=== PATIENT | male | born 2000 ===

== ENCOUNTER 2020-08-04 23:15 | Emergency (ER) | payer SELFPAY ==
[2020-08-05 01:11] VITALS: BP 162/85
--- NOTE | 2020-08-05 01:11 | Emergency Department Report ---
ED General Adult HPI - General Chief complaint: Arrhythmia/Palpitations Stated complaint: FLU SX/SORE THROAT/CHEST PAIN Time Seen by Provider: 08/05/20 01:06 Source: patient Mode of arrival: Ambulatory Limitations: Language Barrier - History of Present Illness Initial comments: The patient was evaluated in the emergency department for symptoms described in the history of present illness. He/she was evaluated in the context of the global COVID-19 pandemic, which necessitated consideration that the patient might be at risk for infection with the virus that causes COVID-19. Institutional protocols and algorithms that pertain to the evaluation of patients at risk for COVID-19 are in a state of rapid change based on information released by regulatory bodies including the CDC and federal and state organizations. These policies and algorithms were followed during the patient's care in the emergency department. Please note that these policies, p rocedures and recommendations changed on a rapid basis. 19-year-old male presents to the emergency room stating that he is having palpitations and headache with chills that started after he took a shower at 8 PM. Patient reports that he also had 2 energy drinks. He denies any fever no chills. Pain 7/10. Symptoms have improved. Patient denies any past medical history currently takes no medications on a daily basis and has no known drug allergies. -: This evening Location: head, chest Severity scale (0 -10): 7 Quality: aching Consistency: intermittent Improves with: none Worsens with: none Associated Symptoms: chest pain, headaches Treatments Prior to Arrival: none - Related Data Allergies Allergy/AdvReac Type Severity Reaction Status Date / Time No Known Allergies Allergy Verified 08/05/20 00:00 ED Review of Systems ROS: Stated complaint: FLU SX/SORE THROAT/CHEST PAIN Other details as noted in HPI Comment: All other systems reviewed and negative ED Past Medical Hx - Past Medical History Previous Medical History?: No - Surgical History Past Surgical History?: No - Social History Smoking Status: Never Smoker Substance Use Type: None ED Physical Exam - General Limitations: Language Barrier General appearance: alert, in no apparent distress - Head Head exam: Present: atraumatic, normocephalic - Eye Eye exam: Present: normal appearance - ENT ENT exam: Present: mucous membranes moist - Neck Neck exam: Present: normal inspection - Respiratory Respiratory exam: Present: normal lung sounds bilaterally. Absent: respiratory distress - Cardiovascular Cardiovascular Exam: Present: regular rate, normal rhythm. Absent: systolic murmur, diastolic murmur, rubs, gallop - GI/Abdominal GI/Abdominal exam: Present: soft, normal bowel sounds - Rectal Rectal exam: Present: deferred - Extremities Exam Extremities exam: Present: normal inspection - Back Exam Back exam: Present: normal inspection - Neurological Exam Neurological exam: Present: alert, oriented X3 - Psychiatric Psychiatric exam: Present: normal affect, normal mood - Skin Skin exam: Present: warm, dry, intact, normal color. Absent: rash ED Course Vital Signs 08/04/20 23:46 Temperature 98.5 F Pulse Rate 82 Respiratory 16 Rate Blood Pressure 162/85 O2 Sat by Pulse 97 Oximetry ED Medical Decision Making - Medical Decision Making 19-year-old male presents to the emergency room stating that he is having palpitations and headache with chills that started after he took a shower at 8 PM. Patient reports that he also had 2 energy drinks. He denies any fever no chills. Pain 7/10. Symptoms have improved. Patient denies any past medical history currently takes no medications on a daily basis and has no known drug allergies. Critical care attestation.: If time is entered above; I have spent that time in minutes in the direct care of this critically ill patient, excluding procedure time. ED Disposition Clinical Impression: Palpitations with regular cardiac rhythm Headache Qualifiers: Headache type: unspecified Headache chronicity pattern: acute headache Intractability: intractable Qualified Code(s): R51.9 - Headache, unspecified Disposition: DC-01 TO HOME OR SELFCARE Is pt being admited?: No Does the pt Need Aspirin: No Condition: Stable Instructions: Palpitations Additional Instructions: Recommend to avoid energy drinks avoid coffee tea sodas. Increase your water intake. Take Tylenol or ibuprofen. Follow-up with a primary care provider. Recomiendo evitar las bebidas energticas evitar las gaseosas de t de caf. Aumente mustafa ingesta de agua. Pauline Tylenol o ibuprofeno. Seguimiento con un proveedor de atencin primaria. Referrals: [facility] [Provider Group] - 3-5 Days Forms: Work/School Release Form(ED) Print Language: [place]
== END 2020-08-05 02:15 | disposition home or self-care (01) ==
LOC: ED 23:15
DX: R51.9 Headache, unspecified (principal); R00.2 Palpitations
CPT/HCPCS: 99282